=== PATIENT | male | born 1960 | race Hispanic/Latino ===

== ENCOUNTER → 2021-05-29 | Outpatient (CLI) | payer OTHER ==
[~2021-05-29] MED LIST: EPINEPHRINE HCL 1:1000 1ML 1 MG/ML AMP ONE; IBUPROFEN 800 MG/200 ML IV ONE; LIDOCAINE 1% W/EPINEPHRINE 20 ML VIAL ONE; LOTREL 5-20 MG1 EACH PO
== END | disposition home or self-care (01) ==
LOC: RAD 06:01 → OR 06:01 → EDSTATUS 08:00
PROVIDERS: ATTEND Otolaryngology Otolaryngology/Facial Plastic Surgery
DX: J32.0 Chronic maxillary sinusitis (principal); Z53.9 Procedure and treatment not carried out, unspecified reason
CPT/HCPCS: 93005; J0171